=== PATIENT | male | born 1940 | race Native Hawaiian/Other Pacific Islander ===

== ENCOUNTER 2021-08-15 19:45 | Emergency (ER) | payer OTHER ==
[~2021-08-15] VITALS: Ht 180.3 cm; Wt 59.0 kg
[2021-08-15 20:31] LABS: PLATELET COUNT 277 K/uL (142-355)
[2021-08-15 20:42] LABS: POTASSIUM 3.6 mmol/L (3.6-5.2)
[2021-08-15 21:25] VITALS: BP 162/103; TEMP 98.1
[2021-08-15] MEDS ORDERED: LIPITOR40 MG PO (22:29)
[2021-08-15] MEDS ORDERED: ADULT ASPIRIN R81 MG PO (22:29)
[2021-08-15] MEDS ORDERED: B-12500 MCG PO (22:31)
[2021-08-15] MEDS ORDERED: FINASTERIDE5 MG PO (22:32)
[2021-08-15] MEDS ORDERED: GABA300C2 PO (22:33)
[2021-08-15] MEDS ORDERED: HUMALOG KW100 UNIT/M SC (22:34)
[2021-08-15] MEDS ORDERED: LANTUS100 UNIT/M SC (22:37)
[2021-08-15] MEDS ORDERED: CLARITIN10 MG PO (22:38)
[2021-08-15] MEDS ORDERED: LISI20TA11 PO (22:38)
[2021-08-15] MEDS ORDERED: METFORMIN HCL500 M1 PO (22:39)
[2021-08-15] MEDS ORDERED: OMEPRAZOLE DR40 MG PO ×2 (22:40)
[2021-08-15] MEDS ORDERED: TAMSULOSIN HYD0.4 MG PO (22:41)
[2021-08-15] MEDS ORDERED: B-1100 MG PO (22:42)
[2021-08-17] MEDS ORDERED: PANTOPRAZOLE 40MG TA PO (01:37)
== END 2021-08-15 21:25 | disposition still patient (30) ==
LOC: ED 19:45
PROVIDERS: Emergency Medicine Emergency Medical Services
DX: R46.89 Other symptoms and signs involving appearance and behavior (principal); R81 Glycosuria; Z11.52 Encounter for screening for COVID-19; Z04.6 Encounter for general psychiatric examination, requested by authority
CPT/HCPCS: 36415; 80053; 81000; 85027; 87077; 87086; 87088; 87186; 87635; 93005; 99283; U0003